=== PATIENT | male | born 1950 | race Caucasian/White ===

== ENCOUNTER → 2017-09-19 | Day surgery (SDC) | payer MEDICARE, OTHER ==
[~2017-09-19] VITALS: Ht 177.8 cm; Wt 111.1 kg
[~2017-09-19] MED LIST: ASPIRIN81 MG PO; DOXYCYCL HYC100 MG PO; LIPITOR20 M1 PO; LOPRESSOR25 MG PO
[2017-09-19 09:31] VITALS: BP 132/57
== END | disposition home or self-care (01) ==
LOC: ENDO 08-22 09:15
PROVIDERS: ATTEND Surgery
DX: Z12.11 Encounter for screening for malignant neoplasm of colon (principal); I48.91 Unspecified atrial fibrillation; Z53.8 Procedure and treatment not carried out for other reasons

== ENCOUNTER → 2018-09-26 | Outpatient (REF) | payer MEDICARE, OTHER ==
[2018-09-26 10:59] LABS: GFR > 60 ML/MIN (>=60 (CALC)); GFR FOR AFR.AMER. > 60 ML/MIN (>=60 (CALC))
== END | disposition home or self-care (01) ==
LOC: CT 09:55
PROVIDERS: ATTEND Internal Medicine
DX: R91.1 Solitary pulmonary nodule (principal)
CPT/HCPCS: Q9967

== ENCOUNTER 2024-08-05 08:45 | Emergency (ER) | payer MEDICARE ==
[~2024-08-05] VITALS: Ht 177.8 cm; Wt 102.0 kg
[2024-08-05 08:52] VITALS: BP 110/65
[2024-08-05 09:00] VITALS: BP 110/62
[2024-08-05 09:30] VITALS: BP 92/60
[2024-08-05] MEDS ORDERED: MOTRIN400 MG/TAB PO (09:45)
[2024-08-05] MEDS ORDERED: TRAMADOL HYDROC50 M1 PO (09:45)
[2024-08-05] MEDS ORDERED: KETOROLAC TROMETHAMINE 30 MG/ML SDV IM ONE (09:45)
[2024-08-05] MEDS ORDERED: traMADol HCL 50 MG/TAB PO ONE (09:45)
[2024-08-05 10:12] VITALS: BP 92/60
== END 2024-08-05 10:12 | disposition home or self-care (01) ==
LOC: ED 08:45
DX: M25.561 Pain in right knee (principal); E78.5 Hyperlipidemia, unspecified; F17.200 Nicotine dependence, unspecified, uncomplicated; Z95.818 Presence of other cardiac implants and grafts

== ENCOUNTER 2024-10-23 16:08 | Emergency (ER) | payer MEDICARE ==
[2024-10-23] VITALS (7 sets, daily range): BP systolic 98–145; BP diastolic 65–98
[~2024-10-23] VITALS: Ht 177.8 cm; Wt 108.0 kg
[~2024-10-23 16:08] MED LIST changes: +MOTRIN400 MG/TAB PO; +TRAMADOL HYDROC50 M1 PO
[2024-10-23] MEDS ORDERED: KETOROLAC TROMETHAMINE 30 MG/ML SDV IM ONE (16:25)
[2024-10-23] MEDS ORDERED: HYDROcodone/Acetaminophen 1 COMBO TAB PO ONE (16:25)
[2024-10-23] MEDS ORDERED: NAPROXEN500 MG PO (17:43)
[2024-10-23] MEDS ORDERED: METHOCARBAMOL500 MG PO (17:43)
[2024-10-23] MEDS ORDERED: LORTAB 7.57.5 MG PO (17:44)
== END 2024-10-23 18:00 | disposition home or self-care (01) ==
LOC: ED 16:08
DX: S22.42XA Multiple fractures of ribs, left side, initial encounter for closed fracture (principal); E78.5 Hyperlipidemia, unspecified; W01.0XXA Fall on same level from slipping, tripping and stumbling without subsequent striking against object, initial encounter; Y92.410 Unspecified street and highway as the place of occurrence of the external cause; Z95.818 Presence of other cardiac implants and grafts